=== PATIENT | female | born 1960 | race Hispanic/Latino ===

== ENCOUNTER 2025-05-17 13:10 | Emergency (ER) | payer MEDICARE ==
[~2025-05-17 13:10] MED LIST: GLIMEPIRIDE2 MG PO; LISINOPRIL20 MG PO; METFORMIN HCL500 MG PO; MOUNJARO5 MG/0.5 M; TRULICITY1.5 MG/0.5
[2025-05-17] MEDS: SODIUM CHLORIDE 0.9% 1000ML 1,000 ML IV ONE (13:55)
[2025-05-17] MEDS: ONDANSETRON HCL INJ 2MG/ML 2ML 2 MG/ML VIAL IV STA (13:55)
[2025-05-17] MEDS: FENTANYL CITRATE/PF 100MCG/2 ML INJ IV ONE (14:11)
[2025-05-17] MEDS: FAMOTIDINE 20 MG/2 ML VIAL IV STA (14:11)
[2025-05-17] MEDS: MAGNESIUM/ALUMINUM/SIMETHICONE 30 ML UDC PO ONE (15:25)
[2025-05-17] MEDS ORDERED: MAALOX MAXIMUM355 ML PO (15:48)
[2025-05-17] MEDS ORDERED: PEPCID20 MG PO (15:48)
[2025-05-17 15:59] VITALS: PULSE 76; RESP 16; TEMP 98; O2SAT 97
== END 2025-05-17 15:59 | disposition home or self-care (01) ==
LOC: MERGE 13:17 → FSED 13:17
DX: R10.12 Left upper quadrant pain (principal); K29.70 Gastritis, unspecified, without bleeding; R11.0 Nausea; I10 Essential (primary) hypertension; E11.65 Type 2 diabetes mellitus with hyperglycemia; E78.5 Hyperlipidemia, unspecified
CPT/HCPCS: 74176; 80053; 81003; 84484; 85025; 93005; 99284; J1308; J2405; J3010; J7030